=== PATIENT | female | born 1995 | race Caucasian/White ===

== ENCOUNTER 2017-03-03 12:11 | Emergency (ER) | payer OTHER ==
--- NOTE | 2017-03-03 12:59 | ED ---
General Adult HPI - General Chief complaint: Abdominal Pain Stated complaint: Abd Pain/Difficulty Breathing Time Seen by Provider: 03/03/17 12:44 Source: patient Mode of arrival: ambulatory Limitations: no limitations - History of Present Illness Initial comments: 21-year-old female began about 2 weeks ago with some migraine generalized headache. No photophobia. Then developed tenderness in the frontal and maxillary sinus blowing green material and has had blood from the nose nose coughing states she also coughed up some blood she is not sure if worse drainage. In the last several days she's developed some abdominal pain constipation no bowel movement for 2 days no frequency urgency dysuria. Her periods have been irregular. States she should test. - Related Data Previous Rx's Medication Instructions Recorded Cephalexin [Keflex] 500 mg PO Q8HR #30 cap 03/03/17 Allergies Allergy/AdvReac Type Severity Reaction Status Date / Time No Known Allergies Allergy Verified 03/03/17 13:27 Review of Systems ROS Statement: Those systems with pertinent positive or pertinent negative responses have been documented in the HPI. ROS Other: All systems not noted in ROS Statement are negative. Constitutional: Reports: fever Eyes: Denies: eye pain ENT: Denies: ear pain, throat pain Respiratory: Reports: cough, hemoptysis Cardiovascular: Denies: chest pain, palpitations Gastrointestinal: Reports: abdominal pain, nausea, vomiting, constipation Genitourinary: Denies: urgency, dysuria, frequency, hematuria Skin: Denies: rash Neurological: Denies: headache Psychiatric: Denies: anxiety, depression Hematological/Lymphatic: Denies: easy bleeding, easy bruising Past Medical History Past Medical History: Asthma Additional Past Medical History / Comment(s): bronchitis, anemia History of Any Multi-Drug Resistant Organisms: None Reported Past Surgical History: No Surgical Hx Reported Past Psychological History: Anxiety, Bipolar, Depression Smoking Status: Current every day smoker Past Alcohol Use History: Occasional Past Drug Use History: None Reported General Exam Limitations: no limitations General appearance: alert, in no apparent distress Head exam: Present: atraumatic Eye exam: Present: normal appearance, PERRL, EOMI ENT exam: Present: normal exam, normal oropharynx, mucous membranes moist, TM's normal bilaterally, other (Tender frontal sinuses) Neck exam: Present: normal inspection Respiratory exam: Present: normal lung sounds bilaterally Cardiovascular Exam: Present: regular rate, normal heart sounds GI/Abdominal exam: Present: soft, tenderness (Mild general tenderness no rebound or guarding) Neurological exam: Present: alert, CN II-XII intact Psychiatric exam: Present: normal affect, normal mood Skin exam: Present: warm, dry Course Vital Signs 03/03/17 03/03/17 03/03/17 12:33 13:43 14:11 Temperature 101 F H 101.6 F H 101.4 F H Pulse Rate 114 H 100 82 Respiratory 20 16 95 H Rate Blood Pressure 130/66 125/56 102/50 O2 Sat by Pulse 97 95 Oximetry 03/03/17 15:45 Temperature 99.0 F Pulse Rate 93 Respiratory 18 Rate Blood Pressure 105/49 O2 Sat by Pulse 94 L Oximetry Medical Decision Making - Lab Data Result diagrams: 03/03/17 13:42 03/03/17 13:42 Lab Results 03/03/17 03/03/17 03/03/17 Range/Units 13:15 13:15 13:42 WBC 9.7 (3.8-10.6) k/uL RBC 4.95 (3.80-5.40) m/uL Hgb 13.7 (11.4-16.0) gm/dL Hct 42.2 (34.0-46.0) % MCV 85.2 (80.0-100.0) fL MCH 27.7 (25.0-35.0) pg MCHC 32.5 (31.0-37.0) g/dL RDW 14.3 (11.5-15.5) % Plt Count 127 L (150-450) k/uL Neutrophils % (Manual) 33.0 % Lymphocytes % (Manual) 58.0 % Monocytes % (Manual) 9.0 % Neutrophils # (Manual) 3.2 (1.3-7.7) k/uL Lymphocytes # (Manual) 5.6 H (1.0-4.8) k/uL Monocytes # (Manual) 0.9 (0-1.0) k/uL Nucleated RBCs 0 (0-0) /100 WBC Differential Comment Manual Slide Review Performed Reactive Lymphocytes Present Poikilocytosis (manual Present Sodium (137-145) mmol/L Potassium (3.5-5.1) mmol/L Chloride (98-107) mmol/L Carbon Dioxide (22-30) mmol/L Anion Gap mmol/L BUN (7-17) mg/dL Creatinine (0.52-1.04) mg/dL Est GFR (MDRD) Af Amer (>60 ml/min/1.73 sqM) Est GFR (MDRD) Non-Af (>60 ml/min/1.73 sqM) Glucose (74-99) mg/dL Calcium (8.4-10.2) mg/dL Total Bilirubin (0.2-1.3) mg/dL AST (14-36) U/L ALT (9-52) U/L Alkaline Phosphatase (38-126) U/L Total Protein (6.3-8.2) g/dL Albumin (3.5-5.0) g/dL Urine Color Dark Brown Urine Appearance Turbid H (Clear) Urine pH 6.0 (5.0-8.0) Ur Specific [place] 1.023 (1.001-1.035) Urine Protein 1+ H (Negative) Urine Glucose (UA) Negative (Negative) Urine Ketones Negative (Negative) Urine Blood Negative (Negative) Urine Nitrite Negative (Negative) Urine Bilirubin 2+ H (Negative) Urine Urobilinogen 4.0 (<2.0) mg/dL Ur Leukocyte Esterase Small H (Negative) Urine RBC 3 (0-5) /hpf Urine WBC 12 H (0-5) /hpf Ur Squamous Epith Cells 25 H (0-4) /hpf Urine Bacteria Occasional H (None) /hpf Urine Mucus Occasional H (None) /hpf Urine HCG, Qual Not Detected (Not Detectd) Heterophile Antibody (Negative) 03/03/17 03/03/17 Range/Units 13:42 13:42 WBC (3.8-10.6) k/uL RBC (3.80-5.40) m/uL Hgb (11.4-16.0) gm/dL Hct (34.0-46.0) % MCV (80.0-100.0) fL MCH (25.0-35.0) pg MCHC (31.0-37.0) g/dL RDW (11.5-15.5) % Plt Count (150-450) k/uL Neutrophils % (Manual) % Lymphocytes % (Manual) % Monocytes % (Manual) % Neutrophils # (Manual) (1.3-7.7) k/uL Lymphocytes # (Manual) (1.0-4.8) k/uL Monocytes # (Manual) (0-1.0) k/uL Nucleated RBCs (0-0) /100 WBC Differential Comment Manual Slide Review Reactive Lymphocytes Poikilocytosis (manual Sodium 136 L (137-145) mmol/L Potassium 4.0 (3.5-5.1) mmol/L Chloride 109 H (98-107) mmol/L Carbon Dioxide 18 L (22-30) mmol/L Anion Gap 9 mmol/L BUN 7 (7-17) mg/dL Creatinine 0.89 (0.52-1.04) mg/dL Est GFR (MDRD) Af Amer >60 (>60 ml/min/1.73 sqM) Est GFR (MDRD) Non-Af >60 (>60 ml/min/1.73 sqM) Glucose 100 H (74-99) mg/dL Calcium 8.4 (8.4-10.2) mg/dL Total Bilirubin 1.8 H (0.2-1.3) mg/dL AST 436 H (14-36) U/L ALT 449 H (9-52) U/L Alkaline Phosphatase 319 H (38-126) U/L Total Protein 6.7 (6.3-8.2) g/dL Albumin 3.3 L (3.5-5.0) g/dL Urine Color Urine Appearance (Clear) Urine pH (5.0-8.0) Ur Specific [place] (1.001-1.035) Urine Protein (Negative) Urine Glucose (UA) (Negative) Urine Ketones (Negative) Urine Blood (Negative) Urine Nitrite (Negative) Urine Bilirubin (Negative) Urine Urobilinogen (<2.0) mg/dL Ur Leukocyte Esterase (Negative) Urine RBC (0-5) /hpf Urine WBC (0-5) /hpf Ur Squamous Epith Cells (0-4) /hpf Urine Bacteria (None) /hpf Urine Mucus (None) /hpf Urine HCG, Qual (Not Detectd) Heterophile Antibody Positive (Negative) Disposition Clinical Impression: Infectious mononucleosis with hepatitis, Acute sinusitis, Constipation Disposition: HOME SELF-CARE Condition: Fair Instructions: Constipation (ED), Mononucleosis (ED), Sinusitis (ED) Prescriptions: Cephalexin [Keflex] 500 mg PO Q8HR #30 cap Referrals: None,Stated [Primary Care Provider] - 1-2 days Time of Disposition: 15:49
[2017-03-03 13:45] LABS: Appearance,Urine Turbid (Clear); Bacteria,Urine Occasional /hpf; Bilirubin,Urine 2+ (Negative); Glucose,Urine (UA) Negative (Negative); Ketones,Urine Negative (Negative); Leukocyte Esterase,Urine Small (Negative); Mucus,Urine Occasional /hpf; Nitrite,Urine Negative (Negative); Particle Count 54283; Protein,Urine 1+ (Negative); RBC,Urine 3 /hpf (0-5); Specific Gravity,Urine 1.023 (1.001-1.035); Squamous Epithelial Cell,Urine 25 /hpf (0-4); UA Billing (MACRO vs. MICRO) MICRO; WBC,Urine 12 /hpf (0-5)
[2017-03-03] MEDS ORDERED: ONDANSETRON 4 MG/2 ML VIAL IVP STA (13:49)
[2017-03-03] MEDS ORDERED: ACETAMINOPHEN TAB 325 MG TAB PO STA (13:49)
[2017-03-03 14:02] LABS: Aty Lym Flag Marked; CH 28.7; CHCM 33.9; HCT 42.2 % (34.0-46.0); HDW 2.88; HGB 13.7 gm/dL (11.4-16.0); MCH 27.7 pg (25.0-35.0); MCHC 32.5 g/dL (31.0-37.0); MCV 85.2 fL (80.0-100.0); Mean Platelet Volume 8.8; RBC 4.95 m/uL (3.80-5.40); RDW 14.3 % (11.5-15.5); WBC 9.7 k/uL (3.8-10.6); WBC (Perox) 9.25
[2017-03-03 14:14] LABS: ALT 449 U/L (9-52); AST 436 U/L (14-36); Alkaline Phosphatase 319 U/L (38-126); Anion Gap 9 mmol/L; Blood Urea Nitrogen 7 mg/dL (7-17); Calcium 8.4 mg/dL (8.4-10.2); Carbon Dioxide 18 mmol/L (22-30); Chloride 109 mmol/L (98-107); Glucose 100 mg/dL (74-99); Non-African American GFR(MDRD) >60 (>60 ml/min/1.73 sqM); Sodium 136 mmol/L (137-145); Total Bilirubin 1.8 mg/dL (0.2-1.3); Total Protein 6.7 g/dL (6.3-8.2)
[2017-03-03 14:16] LABS: Add Differential Manual Differential
[2017-03-03 14:18] LABS: Manual Review Performed; Nucleated Red Blood Cells 0 /100 WBC (0-0); Total Cells Counted 100
[2017-03-03 14:19] LABS: Reactive Lymphocytes Present
--- NOTE | 2017-03-03 15:31 | XR ---
EXAMINATION TYPE: XR chest 2V DATE OF EXAM: 03/03/2017 COMPARISON: 07/12/2014 HISTORY: Fatigue TECHNIQUE: Frontal and lateral views of the chest are obtained. FINDINGS: Heart and mediastinum are normal. Lungs are clear. Diaphragm is normal. Bony thorax is int act. IMPRESSION: Normal chest. No change.
--- NOTE | 2017-03-03 15:33 | XR ---
EXAMINATION TYPE: XR abdomen 2V DATE OF EXAM: 03/03/2017 COMPARISON: 07/20/2015 HISTORY: Fatigue and abdominal pain TECHNIQUE: 3 views FINDINGS: There is no sign of intestinal obstruction or pneumoperitoneum. Fecal pattern is normal. Cherie ng bases are clear. There are no pathologic calcifications over the kidneys. IMPRESSION: Nonacute abdomen. No change.
[2017-03-03] MEDS ORDERED: MAGNESIUM HYDROXIDE 2,400 MG/10 ML CUP PO STA (15:51)
[2017-03-03 16:20] VITALS: BP 116/55; PULSE 90; RESP 16; TEMP 98.7
== END 2017-03-03 16:20 | disposition home or self-care (01) ==
LOC: EC 12:11
DX: K59.00 Constipation, unspecified (principal); B27.90 Infectious mononucleosis, unspecified without complication; J01.90 Acute sinusitis, unspecified; B15.9 Hepatitis A without hepatic coma; F17.200 Nicotine dependence, unspecified, uncomplicated
CPT/HCPCS: 36415; 80053; 85025; 86308; 81001; 81025; 71020; 74020; 99284; 96374; J2405

== ENCOUNTER 2017-03-05 17:49 | Emergency (ER) | payer OTHER ==
[2017-03-05 18:31] VITALS: RESP 18
[2017-03-05] MEDS ORDERED: SODIUM CHLORIDE 0.9% 1,000 ML IV ONE (21:19)
[2017-03-05] MEDS ORDERED: ONDANSETRON 4 MG/2 ML VIAL IVP STA (21:19)
--- NOTE | 2017-03-05 21:24 | ED ---
Abdominal Pain HPI - General Chief Complaint: Abdominal Pain Stated Complaint: Dx w mono, pain all over Time Seen by Provider: 03/05/17 20:48 Source: patient, RN notes reviewed Mode of arrival: ambulatory Limitations: no limitations - History of Present Illness Initial Comments: Patient's 21-year-old female presents to the emergency for evaluation of abdominal pain, nausea and vomiting. Patient states she was diagnosed with mono a few days ago. Patient states she's also diagnosed with sinus infection and placed on Keflex. Patient states she's been vomiting with abdominal pain for the past 2 days. Patient states experiencing a left upper quadrant pain and right upper quadrant pain. Patient states she can't keep any food or liquids down. Patient states unable take her antibiotics. Patient denies history of abdominal surgeries. Patient states she wants wrong even though she just diagnosed with mono. Patient denies headache or dizziness. Patient denies constipation or diarrhea. Patient denies chest pain or shortness of breath. - Related Data Previous Rx's Medication Instructions Recorded Cephalexin [Keflex] 500 mg PO Q8HR #30 cap 03/03/17 Ondansetron Odt [Zofran Odt] 4 mg PO Q8HR PRN #12 tab 03/05/17 Allergies Allergy/AdvReac Type Severity Reaction Status Date / Time No Known Allergies Allergy Verified 03/05/17 20:40 Review of Systems ROS Statement: Those systems with pertinent positive or pertinent negative responses have been documented in the HPI. ROS Other: All systems not noted in ROS Statement are negative. Past Medical History Past Medical History: Asthma Additional Past Medical History / Comment(s): bronchitis, anemia History of Any Multi-Drug Resistant Organisms: None Reported Past Surgical History: No Surgical Hx Reported Past Psychological History: Anxiety, Bipolar, Depression Smoking Status: Current every day smoker Past Alcohol Use History: Occasional Past Drug Use History: None Reported General Exam - General Exam Comments Initial Comments: Laying in exam room, no acute distress. Limitations: no limitations General appearance: alert, in no apparent distress Head exam: Present: atraumatic, normocephalic, normal inspection Eye exam: Present: normal appearance, PERRL, EOMI Pupils: Present: normal accommodation ENT exam: Present: normal exam Neck exam: Present: normal inspection Respiratory exam: Present: normal lung sounds bilaterally. Absent: respiratory distress Cardiovascular Exam: Present: normal rhythm, tachycardia, normal heart sounds GI/Abdominal exam: Present: soft, tenderness (RUQ, LUQ), normal bowel sounds. Absent: distended, guarding, rebound, rigid Extremities exam: Present: normal inspection Back exam: Present: normal inspection Neurological exam: Present: alert, oriented X3, CN II-XII intact, normal gait Psychiatric exam: Present: normal affect, normal mood Skin exam: Present: warm, dry, intact, normal color. Absent: rash Course Vital Signs 03/05/17 03/05/17 03/05/17 18:26 21:58 22:51 Temperature 99.5 F 99.7 F H Pulse Rate 120 H 95 89 Respiratory 18 18 18 Rate Blood Pressure 125/74 108/55 132/58 O2 Sat by Pulse 96 92 L 96 Oximetry 03/06/17 00:00 Temperature 99.1 F Pulse Rate 114 H Respiratory 18 Rate Blood Pressure 161/60 O2 Sat by Pulse 100 Oximetry Medical Decision Making - Medical Decision Making patient is a 20-year-old female presents emergency room for evaluation of vomiting and fever. Patient was recently diagnosed with mono and hepatitis. Ultrasound ordered which show findings of enlarged liver and spleen. Spleen infarct noted. Advised patient to refrain from any contact sports and to continue with medications at home. Will send patient home with Zofran for nausea. Patient states she is feeling better. Advised patient to follow-up with primary care provider in 24-48 hours. Return parameters discussed. Case discussed with Dr. Sorenson. - Lab Data Result diagrams: 03/05/17 21:02 03/05/17 21:02 Lab Results 03/05/17 03/05/17 Range/Units 21:02 21:02 WBC 16.1 H (3.8-10.6) k/uL RBC 5.14 (3.80-5.40) m/uL Hgb 14.8 (11.4-16.0) gm/dL Hct 43.1 (34.0-46.0) % MCV 83.8 (80.0-100.0) fL MCH 28.9 (25.0-35.0) pg MCHC 34.5 (31.0-37.0) g/dL RDW 14.8 (11.5-15.5) % Plt Count 163 (150-450) k/uL Neutrophils % (Manual) 14.0 % Lymphocytes % (Manual) 80.0 % Monocytes % (Manual) 6.0 % Neutrophils # (Manual) 2.3 (1.3-7.7) k/uL Lymphocytes # (Manual) 12.9 H (1.0-4.8) k/uL Monocytes # (Manual) 1.0 (0-1.0) k/uL Nucleated RBCs 0 (0-0) /100 WBC Reactive Lymphocytes Present Large Platelets Present Polychromasia Present Poikilocytosis (manual Present Anisocytosis (manual) Present Sodium 137 (137-145) mmol/L Potassium 4.3 (3.5-5.1) mmol/L Chloride 104 (98-107) mmol/L Carbon Dioxide 22 (22-30) mmol/L Anion Gap 11 mmol/L BUN 11 (7-17) mg/dL Creatinine 1.42 H (0.52-1.04) mg/dL Est GFR (MDRD) Af Amer 56 (>60 ml/min/1.73 sqM) Est GFR (MDRD) Non-Af 46 (>60 ml/min/1.73 sqM) Glucose 97 (74-99) mg/dL Calcium 9.1 (8.4-10.2) mg/dL Magnesium 2.2 (1.6-2.3) mg/dL Total Bilirubin 4.3 H (0.2-1.3) mg/dL AST 363 H (14-36) U/L ALT 402 H (9-52) U/L Alkaline Phosphatase 342 H (38-126) U/L Total Protein 7.2 (6.3-8.2) g/dL Albumin 3.4 L (3.5-5.0) g/dL - Radiology Data Radiology results: report reviewed, image reviewed Disposition Clinical Impression: Infectious mononucleosis with hepatitis Disposition: HOME SELF-CARE Condition: Good Instructions: Mononucleosis (ED) Additional Instructions: Take ibuprofen as needed for discomfort. Take Zofran as needed for nausea. Clear liquid diet for the next 2-3 days. Please follow up with primary care provider in 1-2 days. If any new symptom arises or symptoms worsen, return to ER as soon as possible. Prescriptions: Ondansetron Odt [Zofran Odt] 4 mg PO Q8HR PRN #12 tab PRN Reason: Nausea Referrals: Love Warren MD [STAFF PHYSICIAN] - 1-2 days Time of Disposition: 23:58
[2017-03-05 21:28] LABS: Aty Lym Flag Marked; CH 28.5; CHCM 34.2; HCT 43.1 % (34.0-46.0); HGB 14.8 gm/dL (11.4-16.0); MCH 28.9 pg (25.0-35.0); MCHC 34.5 g/dL (31.0-37.0); MCV 83.8 fL (80.0-100.0); Mean Platelet Volume 9.2; RBC 5.14 m/uL (3.80-5.40); RDW 14.8 % (11.5-15.5); WBC 16.1 k/uL (3.8-10.6); WBC (Perox) 15.89
[2017-03-05 21:33] LABS: Calcium 9.1 mg/dL (8.4-10.2); Magnesium 2.2 mg/dL (1.6-2.3); Potassium 4.3 mmol/L (3.5-5.1); Total Bilirubin 4.3 mg/dL (0.2-1.3); Total Protein 7.2 g/dL (6.3-8.2)
[2017-03-05 22:49] LABS: Add Differential Manual Differential
[2017-03-05 22:51] LABS: Nucleated Red Blood Cells 0 /100 WBC (0-0); Reactive Lymphocytes Present; Total Cells Counted 100
[2017-03-05 22:52] LABS: Large Platelets Present; Polychromasia Present
[2017-03-05] MEDS ORDERED: KETOROLAC 30 MG/ML 1 ML VIAL IVP STA (23:19)
--- NOTE | 2017-03-05 23:30 | US ---
EXAM: US Abdomen Limited, Right Upper Quadrant CLINICAL HISTORY: Reason: Pain TECHNIQUE: Real-time ultrasound of the right upper quadrant with image documentation. COMPARISON: CT 07/20/2015 FINDINGS: Liver: The liver is enlarged measuring 18.2 cm in length on the right. No focal hepatic lesions. Gallbladder: The gallbladder is decompressed. No gallstones or pericholecystic fluid. Sonographic Ren sign is negative. Common bile duct: Unremarkable as visualized. No stones. No dilation. Pancreas: Unremarkable as visualized. Right kidney: Unremarkable. No stones. No solid mass. No hydronephrosis. Spleen: The spleen is enlarged, measuring 16.5 cm. Indeterminate 5 cm hypoechoic geographic avascular area in the spleen. IMPRESSION: Hepatosplenomegaly. Indeterminate 5 cm geographic hypoechoic area in the spleen may represent an infarct or injury.
[2017-03-06 00:10] VITALS: BP 161/60; PULSE 114; TEMP 99.1
[2017-03-06] MEDS ORDERED: IBUPROFEN 800 MG TAB PO STA (00:12)
== END 2017-03-06 00:13 | disposition home or self-care (01) ==
LOC: EC 17:49
DX: K75.9 Inflammatory liver disease, unspecified (principal); B27.90 Infectious mononucleosis, unspecified without complication; R11.2 Nausea with vomiting, unspecified; F17.200 Nicotine dependence, unspecified, uncomplicated
CPT/HCPCS: 36415; 80053; 83735; 85025; 76705; 99284; 96374; 96375; 96361; J2405; J1885

== ENCOUNTER 2017-09-18 00:05 | Emergency (ER) | payer OTHER ==
[2017-09-18 00:25] VITALS: RESP 16
--- NOTE | 2017-09-18 01:51 | ED ---
Eye Problem HPI - General Chief complaint: Eye Problems Stated complaint: eye problems Time Seen by Provider: 09/18/17 00:58 Source: patient Mode of arrival: ambulatory Limitations: no limitations - History of Present Illness Initial comments: 22-year-old female patient presents to the emergency department today with complaints of redness to her bilateral eyes. Patient states that the right eye symptoms started last evening after vomiting. She states that today throughout the day she has noted that she started to have spots in the left eye. Patient states that she vomited twice last evening. States that she did have some diarrhea as well. She states that symptoms did improve today she has been able to eat and drink without difficulty. Patient states that her eyes feel lobe irritated. She states she does have some minor blurred vision in both eyes however she does wear glasses. She is also concerned that she might be . States that she did have 2 periods this month however states it is possible that she is and she would like to be tested. She denies any abnormal vaginal bleeding or discharge. Denies any hematuria, dysuria, urinary urgency, urinary frequency. Patient denies any recent rash, fever, chills, shortness breath, chest pain, abdominal pain, nausea, vomiting, diarrhea, constipation, back pain, numbness, tingling, dizziness, weakness, hematuria, dysuria, urinary urgency, urinary frequency, headache, or any other complaints. - Related Data Home Medications Medication Instructions Recorded Confirmed No Known Home Medications [No 06/06/17 06/06/17 Known Home Medications] Allergies Allergy/AdvReac Type Severity Reaction Status Date / Time No Known Allergies Allergy Verified 06/06/17 17:21 Review of Systems ROS Statement: Those systems with pertinent positive or pertinent negative responses have been documented in the HPI. ROS Other: All systems not noted in ROS Statement are negative. Past Medical History Past Medical History: Asthma Additional Past Medical History / Comment(s): bronchitis, anemia History of Any Multi-Drug Resistant Organisms: None Reported Past Surgical History: No Surgical Hx Reported Past Psychological History: Anxiety, Bipolar, Depression Smoking Status: Current every day smoker Past Alcohol Use History: Rare Past Drug Use History: None Reported General Exam Limitations: no limitations Course Vital Signs 09/18/17 09/18/17 00:21 02:57 Temperature 97.6 F 97.8 F Pulse Rate 100 64 Respiratory 16 16 Rate Blood Pressure 114/71 110/53 O2 Sat by Pulse 97 99 Oximetry Medical Decision Making - Medical Decision Making 22-year-old female patient presented to the emergency department today for evaluation of redness to her bilateral eyes. Patient states symptoms started after vomiting last evening. Physical exam did reveal subconjunctival hemorrhage to the left half of the right eye, and some small conjunctival hemorrhages to the inner portion of the left eye. Visual acuity was performed and was 20/25 in each eye separately, and 20/20 and both eyes. Patient reported that symptoms of vomiting and diarrhea had resolved since yesterday. She is able to eat and drink without difficulty throughout the day today. Patient is concerned she may be and requests testing. Urinalysis and hCG were both negative. Patient was informed of results. Patient will be discharged home with instructions to monitor the hemorrhages in the eyes. She is instructed to follow-up with her primary care physician for recheck in 1-2 days. She is instructed to return here immediately for any new, worsening, or concerning symptoms. She verbalizes understanding and agrees with this plan. - Lab Data Lab Results 09/18/17 09/18/17 Range/Units 02:08 02:08 Urine Color Yellow Urine Appearance Clear (Clear) Urine pH 5.5 (5.0-8.0) Ur Specific [place] 1.030 (1.001-1.035) Urine Protein Trace H (Negative) Urine Glucose (UA) Negative (Negative) Urine Ketones Negative (Negative) Urine Blood Negative (Negative) Urine Nitrite Negative (Negative) Urine Bilirubin Negative (Negative) Urine Urobilinogen 2.0 (<2.0) mg/dL Ur Leukocyte Esterase Negative (Negative) Urine HCG, Qual Not Detected (Not Detectd) Disposition Clinical Impression: Subconjunctival hemorrhage of both eyes Disposition: HOME SELF-CARE Condition: Good Instructions: Subconjunctival Hemorrhage (ED) Additional Instructions: Increase fluids. Follow-up with her primary care physician for recheck in 1-2 days. Return here immediately for any new, worsening, or concerning symptoms. Referrals: None,Stated [Primary Care Provider] - 1-2 days Time of Disposition: 02:50
[2017-09-18 02:37] LABS: Appearance,Urine Clear (Clear); Bilirubin,Urine Negative (Negative); Blood,Urine Negative (Negative); Color,Urine Yellow; Glucose,Urine (UA) Negative (Negative); Ketones,Urine Negative (Negative); Leukocyte Esterase,Urine Negative (Negative); Nitrite,Urine Negative (Negative); PH, Urine 5.5 (5.0-8.0); Protein,Urine Trace (Negative)
[2017-09-19 22:53] VITALS: BP 110/53; PULSE 64; TEMP 97.8
== END 2017-09-18 02:57 | disposition home or self-care (01) ==
LOC: EC 00:05
DX: H11.33 Conjunctival hemorrhage, bilateral (principal); F17.200 Nicotine dependence, unspecified, uncomplicated
CPT/HCPCS: 81003; 81025; 99283

== ENCOUNTER 2018-09-20 15:02 | Emergency (ER) | payer OTHER ==
[2018-09-20 15:21] VITALS: RESP 20; TEMP 99
[2018-09-20] MEDS ORDERED: IPRATROPIUM-ALBUTEROL 3 ML NEB INHALATION STA (15:45)
[2018-09-20] MEDS ORDERED: DEXAMETHASONE 4 MG TAB PO STA (15:45)
--- NOTE | 2018-09-20 15:48 | ED ---
General Adult HPI - General Chief complaint: Upper Respiratory Infection Stated complaint: Upper resp issues Source: patient, RN notes reviewed Mode of arrival: ambulatory Limitations: no limitations - History of Present Illness Initial comments: Patient is a 23-year-old female with history of asthma who presents the emergency department with complaint of sore throat, congestion, runny nose, cough productive of mucus since yesterday. She reports she used her albuterol inhaler today; she does not need a prescription for an inhaler. She states that she also needs a work note today. Patient denies any recent fever, chills , chest pain, back pain, abdominal pain, nausea or vomiting, numbness or tingling, headaches or visual changes, or any other complaints. - Related Data Previous Rx's Medication Instructions Recorded Benzonatate [Tessalon Perles] 100 mg PO TID PRN #20 capsule 09/20/18 Allergies Allergy/AdvReac Type Severity Reaction Status Date / Time No Known Allergies Allergy Verified 09/20/18 15:16 Review of Systems ROS Statement: Those systems with pertinent positive or pertinent negative responses have been documented in the HPI. ROS Other: All systems not noted in ROS Statement are negative. Past Medical History Past Medical History: Asthma Additional Past Medical History / Comment(s): bronchitis, anemia History of Any Multi-Drug Resistant Organisms: None Reported Past Surgical History: No Surgical Hx Reported Past Psychological History: Anxiety, Bipolar, Depression Smoking Status: Current every day smoker Past Alcohol Use History: Rare Past Drug Use History: None Reported General Exam Limitations: no limitations General appearance: alert, in no apparent distress Head exam: Present: atraumatic, normocephalic Eye exam: Present: normal appearance, PERRL ENT exam: Present: TM's normal bilaterally, normal external ear exam, other ( Oropharynx mildly erythematous.) Neck exam: Present: normal inspection. Absent: lymphadenopathy Respiratory exam: Present: normal lung sounds bilaterally Cardiovascular Exam: Present: regular rate, normal rhythm Neurological exam: Present: alert, oriented X3 Psychiatric exam: Present: normal affect, normal mood Skin exam: Present: warm, dry Course Vital Signs 09/20/18 09/20/18 09/20/18 15:16 15:52 16:00 Temperature 99 F Pulse Rate 77 80 92 Respiratory 20 Rate Blood Pressure 110/51 O2 Sat by Pulse 98 Oximetry 09/20/18 17:12 Temperature Pulse Rate 70 Respiratory 20 Rate Blood Pressure 136/56 O2 Sat by Pulse Oximetry Medical Decision Making - Medical Decision Making Influenza A and B are negative. Rapid strep is negative. Given Decadron and DuoNeb treatment. Case discussed in detail with attending physician Dr. Khalil. - Lab Data Lab Results 09/20/18 09/20/18 Range/Units 15:50 15:50 Influenza Type A RNA Not Detected (Not Detectd) Influenza Type B (PCR) Not Detected (Not Detectd) Group A Strep Rapid Negative (Negative) Disposition Clinical Impression: Viral infection Disposition: HOME SELF-CARE Condition: Good Instructions: Upper Respiratory Infection (ED) Additional Instructions: Follow-up with your PCP in 1 to 2 days. Return to the emergency department if your symptoms worsen or any other concerns. Prescriptions: Benzonatate [Tessalon Perles] 100 mg PO TID PRN #20 capsule PRN Reason: Cough Is patient prescribed a controlled substance at d/c from ED?: No Referrals: None,Stated [Primary Care Provider] - 1-2 days Love Warren MD [STAFF PHYSICIAN] - 1-2 days Time of Disposition: 16:58
[2018-09-20 17:14] VITALS: BP 136/56; PULSE 70
== END 2018-09-20 17:14 | disposition home or self-care (01) ==
LOC: EC 15:02
DX: B34.9 Viral infection, unspecified (principal); J45.909 Unspecified asthma, uncomplicated; F17.200 Nicotine dependence, unspecified, uncomplicated
CPT/HCPCS: 94640; 87081; 87430; 87502; 99283; J8540

== ENCOUNTER → 2020-07-19 | Outpatient (CLI) | payer OTHER ==
--- NOTE | 2020-07-20 03:35 | MR ---
EXAMINATION TYPE: MR lumbar spine wo con DATE OF EXAM: 07/19/2020 COMPARISON: None HISTORY: Back pain, Sharp, Tingling, Burning numbness and spasms x 1 year Center of back toward right side and down Right leg. Lumbar vertebra have normal alignment. There is mild decreased signal of the discs on the T2 images a t L4-5 and L5-S1. There is no significant disc space narrowing. There is small posterior disc central herniations at L4-5 and L5-S1. There is developmentally adequate spinal canal and no significant spi nal stenosis. There is no lumbar paraspinal mass. The lumbar neural foramina are widely patent. I see no bony destructive process. Visualized sacroiliac joints appear intact. IMPRESSION: Mild posterior central disc herniations at L4-5 and L5-S1. No significant impingement on the neural e lements. No fracture.
== END | disposition home or self-care (01) ==
LOC: RADMRIMAIN 12:37
PROVIDERS: ATTEND Family Medicine
DX: M51.26 Other intervertebral disc displacement, lumbar region (principal); M51.27 Other intervertebral disc displacement, lumbosacral region
CPT/HCPCS: 72148

== ENCOUNTER → 2022-03-28 | Outpatient (CLI) | payer OTHER ==
--- NOTE | 2022-03-28 15:12 | USB ---
Reason for Exam: Clinical finding. Findings: The whole breast of both breasts, the axilla of both breasts and the retroareolar of both breasts were scanned. right breast 200 14 cfn superficial area at palp= 1.0 x 1.6 x 0.3 cm.. This likely reflects an area of skin infection. Management: Screening Mammogram of both breasts at age 38. A clinical breast exam by your physician is recommended on an annual basis and results should be correlated with mammographic findings. Electronically signed and approved by: Scar Hunt M.D. Radiologis
== END | disposition home or self-care (01) ==
LOC: RADUSWWP 14:28
PROVIDERS: ATTEND Family Medicine
DX: N63.12 Unspecified lump in the right breast, upper inner quadrant (principal)

== ENCOUNTER 2022-04-29 13:30 | Emergency (ER) | payer OTHER ==
[2022-04-29 13:59] VITALS: TEMP 98.4
[2022-04-29] MEDS ORDERED: ONDANSETRON 4 MG/2 ML VIAL IVP STA (15:01)
[2022-04-29] MEDS ORDERED: SODIUM CHLORIDE 0.9% 1,000 ML IV STA (15:01)
[2022-04-29] MEDS ORDERED: KETOROLAC 15 MG/ML 1 ML VIAL IVP STA (15:01)
--- NOTE | 2022-04-29 15:05 | ED ---
Abdominal Pain HPI - General Chief Complaint: Abdominal Pain Stated Complaint: stomach pain Time Seen by Provider: 04/29/22 14:53 Source: patient, RN notes reviewed Mode of arrival: ambulatory Limitations: no limitations - History of Present Illness Initial Comments: This is a 27-year-old female who presents to the emergency department for right upper quadrant pain. Patient states that for the last 2 days she's had severe pain in the right upper quadrant/epigastric region that radiates into the back and down the abdomen. She also feels nauseous but is unable to vomit. Denies any changes in bowel habits. States that she is unable to eat or sleep due to her symptoms. Denies any fevers, chills, sore throat, cough, dyspnea, chest pain, palpitations, diarrhea, or headaches. MD Complaint: abdominal pain Onset/Timin -: days(s) Location: RUQ Radiation: back Migration to: RLQ Associated Symptoms: nausea, vomiting Treatments Prior to Arrival: NSAIDs - Related Data Home Medications Medication Instructions Recorded Confirmed Albuterol Sulfate [Proair Hfa] 2 puff INHALATION RT-QID PRN 04/29/22 04/29/22 Chlorthalidone [Hygroton] 25 mg PO DAILY 04/29/22 04/29/22 Potassium Chloride ER [K-Dur 10] 10 meq PO DAILY 04/29/22 04/29/22 metFORMIN HCL 500 mg PO DAILY 04/29/22 04/29/22 Previous Rx's Medication Instructions Recorded HYDROcodone/APAP 5-325MG [Tabor 1 tab PO Q6HR PRN 3 Days #12 tab 04/29/22 5-325] Omeprazole 20 mg PO QAM 14 Days #14 cap 04/29/22 Ondansetron Odt [Zofran Odt] 4 mg PO Q8HR PRN #20 tab 04/29/22 Allergies Allergy/AdvReac Type Severity Reaction Status Date / Time iodine Allergy Unknown Verified 04/29/22 15:45 Review of Systems ROS Statement: Those systems with pertinent positive or pertinent negative responses have been documented in the HPI. ROS Other: All systems not noted in ROS Statement are negative. Past Medical History Past Medical History: Asthma, Hyperlipidemia Additional Past Medical History / Comment(s): bronchitis, anemia History of Any Multi-Drug Resistant Organisms: None Reported Past Surgical History: No Surgical Hx Reported Past Psychological History: Anxiety, Bipolar, Depression Smoking Status: Current every day smoker Past Alcohol Use History: Rare Past Drug Use History: Marijuana General Exam Limitations: no limitations General appearance: alert, in no apparent distress Head exam: Present: atraumatic, normocephalic, normal inspection Respiratory exam: Present: normal lung sounds bilaterally. Absent: respiratory distress, wheezes, rales, rhonchi, stridor Cardiovascular Exam: Present: regular rate, normal rhythm, normal heart sounds. Absent: systolic murmur, diastolic murmur, rubs, gallop, clicks GI/Abdominal exam: Present: soft, tenderness (RUQ), normal bowel sounds. Absent: distended, guarding, rebound, rigid Neurological exam: Present: alert, oriented X3, CN II-XII intact Psychiatric exam: Present: normal affect, normal mood Skin exam: Present: warm, dry, intact, normal color. Absent: rash Course Vital Signs 04/29/22 13:55 Temperature 98.4 F Pulse Rate 76 Respiratory 16 Rate Blood Pressure 97/64 O2 Sat by Pulse 99 Oximetry Medical Decision Making - Medical Decision Making This is a 27-year-old female who presents to the emergency department for right upper quadrant pain. Lab work reveals leukocytosis. Gallbladder of the ultrasound was limited due to the patient's body habitus, however it was not able to visualize any irregularities. Given the patient's symptoms and the le ukocytosis, CT of the abdomen and pelvis was obtained. CT of the abdomen and pelvis revealed no acute irregularities. Discussed with patient that her symptoms may be related to biliary dyskinesia or a peptic ulcer. Instructed her to discuss a HIDA scan with her primary care provider for further evaluation of her gallbladder function. Prescription for Zofran and Omeprazole provided. Short course of Tabor prescribed to take when symptoms are the most severe. Advised she take this sparingly and aim to primarily use Tylenol and Ibuprofen. Return precautions reviewed in depth, the patient is instructed to return to the emergency department with any new, worsening, or concerning symptoms. Patient verbalized understanding. This case was discussed in detail with the attending ED physician. Presentation, findings, and treatment plan discussed in detail as well. - Lab Data Result diagrams: 04/29/22 15:14 04/29/22 16:02 Lab Results 04/29/22 04/29/22 04/29/22 Range/Units 15:14 15:52 15:52 WBC 14.8 H (3.8-10.6) k/uL RBC 5.23 (3.80-5.40) m/uL Hgb 11.7 (11.4-16.0) gm/dL Hct 38.6 (34.0-46.0) % MCV 73.8 L (80.0-100.0) fL MCH 22.4 L (25.0-35.0) pg MCHC 30.4 L (31.0-37.0) g/dL RDW 16.1 H (11.5-15.5) % Plt Count 390 (150-450) k/uL MPV 8.0 Neutrophils % 73 % Lymphocytes % 17 % Monocytes % 5 % Eosinophils % 3 % Basophils % 1 % Neutrophils # 10.8 H (1.3-7.7) k/uL Lymphocytes # 2.6 (1.0-4.8) k/uL Monocytes # 0.7 (0-1.0) k/uL Eosinophils # 0.5 (0-0.7) k/uL Basophils # 0.1 (0-0.2) k/uL Hypochromasia Moderate Anisocytosis Slight Microcytosis Slight Sodium (137-145) mmol/L Potassium (3.5-5.1) mmol/L Chloride (98-107) mmol/L Carbon Dioxide (22-30) mmol/L Anion Gap mmol/L BUN (7-17) mg/dL Creatinine (0.52-1.04) mg/dL Est GFR (CKD-EPI)AfAm (>60 ml/min/1.73 sqM) Est GFR (CKD-EPI)NonAf (>60 ml/min/1.73 sqM) Glucose (74-99) mg/dL Calcium (8.4-10.2) mg/dL Total Bilirubin (0.2-1.3) mg/dL AST (14-36) U/L ALT (4-34) U/L Alkaline Phosphatase (38-126) U/L Total Protein (6.3-8.2) g/dL Albumin (3.5-5.0) g/dL Amylase (30-110) U/L Lipase (23-300) U/L Urine Color Yellow Urine Appearance Cloudy H (Clear) Urine pH 5.5 (5.0-8.0) Ur Specific [place] 1.036 H (1.001-1.035) Urine Protein Trace H (Negative) Urine Glucose (UA) Negative (Negative) Urine Ketones Trace H (Negative) Urine Blood Negative (Negative) Urine Nitrite Negative (Negative) Urine Bilirubin Negative (Negative) Urine Urobilinogen 2.0 (<2.0) mg/dL Ur Leukocyte Esterase Negative (Negative) Urine RBC 1 (0-5) /hpf Urine WBC 3 (0-5) /hpf Ur Squamous Epith Cells 16 H (0-4) /hpf Urine Bacteria Rare H (None) /hpf Urine Mucus Few H (None) /hpf Urine HCG, Qual Not Detected (Not Detectd) 04/29/22 Range/Units 16:02 WBC (3.8-10.6) k/uL RBC (3.80-5.40) m/uL Hgb (11.4-16.0) gm/dL Hct (34.0-46.0) % MCV (80.0-100.0) fL MCH (25.0-35.0) pg MCHC (31.0-37.0) g/dL RDW (11.5-15.5) % Plt Count (150-450) k/uL MPV Neutrophils % % Lymphocytes % % Monocytes % % Eosinophils % % Basophils % % Neutrophils # (1.3-7.7) k/uL Lymphocytes # (1.0-4.8) k/uL Monocytes # (0-1.0) k/uL Eosinophils # (0-0.7) k/uL Basophils # (0-0.2) k/uL Hypochromasia Anisocytosis Microcytosis Sodium 136 L (137-145) mmol/L Potassium 5.4 H (3.5-5.1) mmol/L Chloride 107 (98-107) mmol/L Carbon Dioxide 21 L (22-30) mmol/L Anion Gap 8 mmol/L BUN 14 (7-17) mg/dL Creatinine 0.79 (0.52-1.04) mg/dL Est GFR (CKD-EPI)AfAm >90 (>60 ml/min/1.73 sqM) Est GFR (CKD-EPI)NonAf >90 (>60 ml/min/1.73 sqM) Glucose 105 H (74-99) mg/dL Calcium 8.8 (8.4-10.2) mg/dL Total Bilirubin 0.7 (0.2-1.3) mg/dL AST 27 (14-36) U/L ALT 14 (4-34) U/L Alkaline Phosphatase 57 (38-126) U/L Total Protein 6.8 (6.3-8.2) g/dL Albumin 3.7 (3.5-5.0) g/dL Amylase 40 (30-110) U/L Lipase 54 (23-300) U/L Urine Color Urine Appearance (Clear) Urine pH (5.0-8.0) Ur Specific [place] (1.001-1.035) Urine Protein (Negative) Urine Glucose (UA) (Negative) Urine Ketones (Negative) Urine Blood (Negative) Urine Nitrite (Negative) Urine Bilirubin (Negative) Urine Urobilinogen (<2.0) mg/dL Ur Leukocyte Esterase (Negative) Urine RBC (0-5) /hpf Urine WBC (0-5) /hpf Ur Squamous Epith Cells (0-4) /hpf Urine Bacteria (None) /hpf Urine Mucus (None) /hpf Urine HCG, Qual (Not Detectd) - Radiology Data Radiology results: report reviewed, image reviewed Disposition Clinical Impression: Biliary dyskinesia Disposition: HOME SELF-CARE Instructions (If sedation given, give patient instructions): Peptic Ulcer (ED), Gastritis (ED), Diet for Stomach Ulcers and Gastritis (ED), Biliary Dyskinesia (DC) Additional Instructions: Return to the emergency department with any new, worsening, or concerning symptoms. Talk to your primary care provider about having a HIDA scan to evaluate your gallbladder function. Your CT scan and ultrasound revealed no structural abnormalities of your gallbladder or other organs. Take the omeprazole daily for 14 days. The Zofran can be taken up to every 8 hours as needed for nausea and vomiting. Alternate with Ibuprofen and Tylenol as needed for pain and use the Tabor sparingly when the pain is the most severe. Follow up with your primary care provider in 1-2 days. Prescriptions: HYDROcodone/APAP 5-325MG [Tabor 5-325] 1 tab PO Q6HR PRN 3 Days #12 tab PRN Reason: Pain Omeprazole 20 mg PO QAM 14 Days #14 cap Ondansetron Odt [Zofran Odt] 4 mg PO Q8HR PRN #20 tab PRN Reason: Nausea And Vomiting Is patient prescribed a controlled substance at d/c from ED?: Yes When asked, does pt state using other controlled substances?: No If prescribed controlled substance>3 days was MAPS reviewed?: Prescribed <3 Days Referrals: Maribell Melo MD [Primary Care Provider] - 1-2 days
[2022-04-29 15:21] LABS: Anisocytosis Slight; Basophils # (A) 0.1 k/uL (0-0.2); Basophils % (A) 1 %; Eosinophils # (A) 0.5 k/uL (0-0.7); Eosinophils % (A) 3 %; HCT 38.6 % (34.0-46.0); HGB 11.7 gm/dL (11.4-16.0); Hypochromasia Moderate; Lymphocytes # (A) 2.6 k/uL (1.0-4.8); Lymphocytes % (A) 17 %; MCH 22.4 pg (25.0-35.0); MCHC 30.4 g/dL (31.0-37.0); MCV 73.8 fL (80.0-100.0); Microcytosis Slight; Monocytes # (A) 0.7 k/uL (0-1.0); Monocytes % (A) 5 %; Neutrophils # (A) 10.8 k/uL (1.3-7.7); Neutrophils % (A) 73 %; Platelet Count 390 k/uL (150-450); RBC 5.23 m/uL (3.80-5.40); RDW 16.1 % (11.5-15.5); WBC 14.8 k/uL (3.8-10.6)
[2022-04-29 16:03] LABS: Appearance,Urine Cloudy (Clear); Bacteria,Urine Rare /hpf; Bilirubin,Urine Negative (Negative); Blood,Urine Negative (Negative); Color,Urine Yellow; Glucose,Urine (UA) Negative (Negative); Ketones,Urine Trace (Negative); Leukocyte Esterase,Urine Negative (Negative); Mucus,Urine Few /hpf; Nitrite,Urine Negative (Negative); PH, Urine 5.5 (5.0-8.0); Protein,Urine Trace (Negative); RBC,Urine 1 /hpf (0-5); Specific Gravity,Urine 1.036 (1.001-1.035); Squamous Epithelial Cell,Urine 16 /hpf (0-4); WBC,Urine 3 /hpf (0-5)
--- NOTE | 2022-04-29 16:12 | US ---
EXAMINATION TYPE: US gallbladder DATE OF EXAM: 04/29/2022 COMPARISON: US 2017 CLINICAL HISTORY: RUQ pain. Abdomen pain and nausea x couple days, patient not NPO TECHNIQUE: Multiple sonographic images of the right upper quadrant are obtained. FINDINGS: EXAM MEASUREMENTS: Liver Length: 17.3 cm Gallbladder Wall: 0.2 cm CBD: 0.4 cm Right Kidney: 10.3 x 4.5 x 4.7 cm MARBLE RUBBER NOTES:Difficult and limited study due to patient body habitus Pancreas: obscured by overlying midline bowel Liver: measures in upper limits of normal Gallbladder: Grossly unremarkable. Evidence for sonographic Ren's sign: no CBD: Normal appearance. Measures up to 4 mm. Right Kidney: appears wnl IMPRESSION: 1. Technically limited examination due to body habitus and diffuse bowel gas. No findings to suggest acute cholecystitis. Further evaluation with nuclear medicine hepatobiliary imaging can be performed if clinical concern persists. 2. Hepatomegaly.
[2022-04-29 16:20] LABS: ALT 14 U/L (4-34); AST 27 U/L (14-36); African American GFR (CKD) >90 (>60 ml/min/1.73 sqM); Albumin 3.7 g/dL (3.5-5.0); Alkaline Phosphatase 57 U/L (38-126); Amylase 40 U/L (30-110); Anion Gap 8 mmol/L; Blood Urea Nitrogen 14 mg/dL (7-17); Calcium 8.8 mg/dL (8.4-10.2); Carbon Dioxide 21 mmol/L (22-30); Chloride 107 mmol/L (98-107); Glucose 105 mg/dL (74-99); Lipase 54 U/L (23-300); Non-African American GFR(CKD) >90 (>60 ml/min/1.73 sqM); Sodium 136 mmol/L (137-145); Total Bilirubin 0.7 mg/dL (0.2-1.3); Total Protein 6.8 g/dL (6.3-8.2)
[2022-04-29 16:35] LABS: Potassium 5.4 mmol/L (3.5-5.1)
[2022-04-29] MEDS ORDERED: FAMOTIDINE 20 MG/2 ML VIAL IV STA (16:41)
[2022-04-29] MEDS ORDERED: methylPREDNISolone SOD SUCCI 125 MG/2 ML VIAL IV STA (16:41)
[2022-04-29] MEDS ORDERED: diphenhydrAMINE 50 MG/ML 1 ML VIAL IVP STA (16:41)
[2022-04-29] MEDS ORDERED: HYDROmorphone 0.5 MG/0.5 ML SYRINGE IVP STA (16:46)
--- NOTE | 2022-04-29 17:45 | CT ---
EXAMINATION TYPE: CT abdomen pelvis w con CT DLP: 2922.4 mGycm, Automated exposure control for dose reduction was used. DATE OF EXAM: 04/29/2022 5:22 PM COMPARISON: Gallbladder ultrasound 04/29/2022, CT abdomen pelvis 07/20/2015 CLINICAL INDICATION:Female, 27 years old with history of Abdominal pain, acute, nonlocalized; R sided abdominal pain. TECHNIQUE: Axial CT of the abdomen and pelvis. Sagittal and coronal reformats were created on a [employer] workstation. Contrast used:100 mL of Isovue 300 with IV Contrast, Oral contrast used: without Oral Contrast FINDINGS: LOWER CHEST: Unremarkable ABDOMEN LIVER: Unremarkable GALLBLADDER AND BILE DUCTS: Unremarkable. PANCREAS: Unremarkable. SPLEEN: Small splenule is present. ADRENAL GLANDS: Unremarkable. KIDNEYS AND URETERS: No evidence of hydronephrosis or renal calculus. The ureters are unremarkable. PELVIS BLADDER: Incompletely distended but grossly unremarkable. REPRODUCTIVE: Follicular changes in the bilateral adnexa. Uterus is grossly unremarkable. ABDOMEN & PELVIS STOMACH AND BOWEL: Stomach and duodenum are unremarkable No evidence of bowel obstruction. Appendix i s normal. PERITONEUM: No evidence of pneumoperitoneum or free fluid. VASCULATURE: No evidence of aortic aneurysm. MUSCULOSKELETAL: No acute osseous abnormalities LYMPH NODES: No gross evidence for lymphadenopathy. SOFT TISSUE/ABDOMINAL WALL: Unremarkable IMPRESSION: 1. No acute intra-abdominal or intrapelvic abnormality
[2022-04-29] MEDS ORDERED: MAG HYDROX/AL HYDROX/SIMETH 30 ML, HYOSCYAMINE ELIXIR 10 ML PO STA ×2 (17:59)
[2022-04-29] MEDS ORDERED: ONDANSETRON 4 MG ODT STARTER PACK 2 TAB BTL PO STA (18:10)
[2022-04-29] MEDS ORDERED: ACET/COD 300 MG/30 MG STARTER PACK 6 TAB BTL PO STA (18:10)
[2022-04-29 18:39] VITALS: BP 112/65; PULSE 74; RESP 18
== END 2022-04-29 18:39 | disposition home or self-care (01) ==
LOC: EC 13:30
DX: K82.8 Other specified diseases of gallbladder (principal); J45.909 Unspecified asthma, uncomplicated; E78.5 Hyperlipidemia, unspecified; F17.200 Nicotine dependence, unspecified, uncomplicated; Z91.041 Radiographic dye allergy status
CPT/HCPCS: 36415; 80053; 82150; 83690; 85025; 81001; 81025; 76705; 74177; 99284; 96374; 96375; 96361; J1200; J2930; J2405; J1885; S0119; J1170; Q9967

== ENCOUNTER → 2022-05-16 | Outpatient (CLI) | payer OTHER ==
--- NOTE | 2022-05-16 15:30 | NM ---
EXAMINATION TYPE: NM hepatobiliary w EF DATE OF EXAM: 05/16/2022 COMPARISON: CT abdomen pelvis 04/29/2022, gallbladder ultrasound 04/29/2022. HISTORY: R10.11 RUQ PAIN TECHNIQUE: After the intravenous administration of 4.47 mCi Tc 99m Mebrofenin hepatobiliary scintigra phy is performed. Immediate images post injection. FINDINGS: There is satisfactory initial accumulation of tracer by the liver. The gallbladder is definitively v isualized within 6 minutes. The small bowel activity is noted within 90 minutes. At one hour 8 ounc es of oral ensure plus is given to mimic CCK and gallbladder ejection fraction is calculated at 63 %, in the normal range. Therefore there is no scintigraphic evidence of cystic or common bile duct obs truction to suggest acute cholecystitis or gallbladder dyskinesia. IMPRESSION: Exam is within normal limits.
== END | disposition home or self-care (01) ==
LOC: RADNMMAIN 12:32
PROVIDERS: ATTEND Family Medicine
DX: R10.11 Right upper quadrant pain (principal)
CPT/HCPCS: 78226; A9537

== ENCOUNTER → 2023-07-03 | Outpatient (CLI) | payer OTHER ==
--- NOTE | 2023-07-04 07:57 | US ---
EXAMINATION TYPE: US transvaginal DATE OF EXAM: 07/03/2023 COMPARISON: NONE CLINICAL INDICATION: Female, 28 years old with history of N92.0 EXCESSIVE AND FREQUENT MENSTRUATION W ITH REG; menorrhagia TECHNIQUE: Transvaginal (TV EXAM MEASUREMENTS: Uterus: 7.8 x 4.1 x 7.1 cm Endometrial Stripe: right .8 cm left .7 cm. 1. Uterus: Bicornuate 2. Endometrium: wnl 3. Right Ovary: Obscured by overlying bowel gas 4. Left Ovary: Obscured by overlying bowel gas 5. Bilateral Adnexa: wnl 6. Posterior cul-de-sac: wnl IMPRESSION: Bicornuate uterus
== END | disposition home or self-care (01) ==
LOC: RADUSWWP 15:38
PROVIDERS: ATTEND Family Medicine
DX: N92.0 Excessive and frequent menstruation with regular cycle (principal); Q51.3 Bicornate uterus
CPT/HCPCS: 76830